=== PATIENT | female | born 1965 | race Caucasian/White ===

== ENCOUNTER → 2016-03-17 | Day surgery (SDC) | payer OTHER ==
[~2016-03-17] MED LIST: CILOXAN 10 ML10 ML OT; CILOXAN 5 ML5 M1 OT; DAYPRO600 M1 PO; INCRUSE EL62.5 MCG/A INH; MEDROL DOSEPAK4 MG PO; PAXIL10 MG PO; PRILOSEC20 M1 PO; PRILOSEC20 MG PO; ROBAXIN750 MG PO; SPIRIVA RESPIMAT4 G1 IH; THE MEDICINE S400 IU PO; VENTOLIN H0.09 MG/AC INH; VICODIN 5/500 505 MG PO; VICODIN 500 MG-1 TAB PO
[2016-03-17 10:35] VITALS: BP 102/56
[2016-03-17 12:30] VITALS: BP 116/50
== END | disposition home or self-care (01) ==
LOC: SDC 03-11 09:30
DX: N60.11 Diffuse cystic mastopathy of right breast (principal); R92.0 Mammographic microcalcification found on diagnostic imaging of breast; K21.9 Gastro-esophageal reflux disease without esophagitis; Z87.01 Personal history of pneumonia (recurrent); Z86.14 Personal history of Methicillin resistant Staphylococcus aureus infection; F17.210 Nicotine dependence, cigarettes, uncomplicated; Z98.51 Tubal ligation status; Z82.5 Family history of asthma and other chronic lower respiratory diseases; Z83.3 Family history of diabetes mellitus; Z82.49 Family history of ischemic heart disease and other diseases of the circulatory system

== ENCOUNTER → 2017-12-07 | Outpatient (CLI) | payer OTHER | END | disposition home or self-care (01) | LOC: RAD 14:34 | DX: R76.11 Nonspecific reaction to tuberculin skin test without active tuberculosis (principal); J44.9 Chronic obstructive pulmonary disease, unspecified; F17.210 Nicotine dependence, cigarettes, uncomplicated ==